=== PATIENT | male | born 1945 | race Caucasian/White ===

== ENCOUNTER 2021-06-21 12:03 | Emergency (ER) | payer MEDICARE ==
[~2021-06-21] VITALS: Ht 185.5 cm; Wt 79.4 kg
--- NOTE | 2021-06-21 12:25 | ED General ---
General Chief Complaint: Dizziness/Syncope Stated Complaint: SEIZURE-LIKE ACTIVITY Source of Information: Patient, Spouse History of Present Illness Date Seen by Provider: June 21, 2021 Time Seen by Provider: 12:05 Initial Comments 75-year-old male presenting by private vehicle as they were driving home from [facility]. Patient just had hip replacement surgery and was being discharged from the hospital this morning. He had slightly low blood pressure this morning and was given a tramadol pain pill prior to leaving the hospital. On the way home from the hospital he had 2 episodes where he felt like he was going to throw up and was pale and shaking. Patient states he felt like he had some motion sickness as well. According to patient and spouse he does not tolerate narcotic pain medicines very well. They still have [address] to get to their home so they stopped here at [place] to be evaluated. They were going to turn around and go back to [facility] but because he was feeling better they [place] [address]. Currently sitting in the bed now he states he just feels a little weak. Timing/Duration: 1/2 Hour Severity: Moderate Associated Systoms: No Chest Pain, No Cough; Diaphoresis; No Fever/Chills, No Headaches, No Loss of Appetite, No Malaise; Nausea/Vomiting (Had nausea but no vomiting); No Rash, No Seizure, No Shortness of Air, No Syncope, No Weakness Allergies and Home Medications Allergies Coded Allergies: No Known Drug Allergies (Unverified , 06/21/21) Patient Home Medication List Home Medication List Reviewed: Yes Review of Systems Review of Systems Constitutional: No chills, No fever EENTM: no symptoms reported Respiratory: no symptoms reported Cardiovascular: no symptoms reported Gastrointestinal: see HPI Genitourinary: no symptoms reported Musculoskeletal: joint pain (Some pain in his hip from recent replacement) Skin: see HPI Psychiatric/Neurological: See HPI Past Ctdrmca-Rkmjtg-Wfmgzb Hx Patient Social History Tobacco Use?: No Smoking Status: Never a Smoker Smokeless Tobacco Frequency: Never a User Use of E-Cig and/or Vaping dev: No Use of E-Cig and/or Vaping Randell: Never a User Substance use?: No Alcohol Use?: No Pt feels they are or have been: No Immunizations Up To Date COVID19 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 oz. kg; BMI Method: General Appearance: No Apparent Distress, WD/WN HEENT: PERRL/EOMI, Pharynx Normal Neck: Full Range of Motion, Normal Inspection, Non Tender, Supple Respiratory: Chest Non Tender, Lungs Clear, Normal Breath Sounds, No Accessory Muscle Use, No Respiratory Distress Cardiovascular: Regular Rate, Rhythm, Normal Peripheral Pulses Gastrointestinal: Normal Bowel Sounds, No Pulsatile Mass, Non Tender, Soft Rectal: Deferred Extremity: Normal Capillary Refill, Normal Inspection, No Pedal Edema Neurologic/Psychiatric: Alert, Oriented x3, No Motor/Sensory Deficits, survey field technician II- XII Norm as Tested Skin: Normal Color, Warm/Dry Progress/Results/Core Measures Suspected Sepsis SIRS Temperature: Pulse: Respiratory Rate: Laboratory Tests 06/21/21 12:21: White Blood Count 11.0 Blood Pressure / Mean: Laboratory Tests 06/21/21 12:21: Creatinine 0.86, INR Comment 1.4, Platelet Count 126L, Total Bilirubin 0.8 Results/Orders Lab Results Laboratory Tests Test 06/21/21 12:21 Range/Units White Blood Count 11.0 4.3-11.0 10^3/uL Red Blood Count 4.34 4.30-5.52 10^6/uL Hemoglobin 13.5 13.3-17.7 g/dL Hematocrit 40 40-54 % Mean Corpuscular Volume 92 80-99 fL Mean Corpuscular Hemoglobin 31 25-34 pg Mean Corpuscular Hemoglobin Concent 34 32-36 g/dL Red Cell Distribution Width 13.1 10.0-14.5 % Platelet Count 126 L 130-400 10^3/uL Mean Platelet Volume 11.7 9.0-12.2 fL Immature Granulocyte % (Auto) 1 % Neutrophils (%) (Auto) 75 42-75 % Lymphocytes (%) (Auto) 12 12-44 % Monocytes (%) (Auto) 11 0-12 % Eosinophils (%) (Auto) 2 0-10 % Basophils (%) (Auto) 0 0-10 % Neutrophils # (Auto) 8.2 H 1.8-7.8 10^3/uL Lymphocytes # (Auto) 1.3 1.0-4.0 10^3/uL Monocytes # (Auto) 1.3 H 0.0-1.0 10^3/uL Eosinophils # (Auto) 0.2 0.0-0.3 10^3/uL Basophils # (Auto) 0.0 0.0-0.1 10^3/uL Immature Granulocyte # (Auto) 0.1 0.0-0.1 10^3/uL Percent Immature Platelet Fraction 7.7 H 0.0-7.6 % Prothrombin Time 17.2 H 12.2-14.7 SEC INR Comment 1.4 0.8-1.4 Activated Partial Thromboplast Time 31 24-35 SEC Sodium Level 137 135-145 MMOL/L Potassium Level 4.3 3.6-5.0 MMOL/L Chloride Level 104 98-107 MMOL/L Carbon Dioxide Level 23 21-32 MMOL/L Anion Gap 10 5-14 MMOL/L Blood Urea Nitrogen 27 H 7-18 MG/DL Creatinine 0.86 0.60-1.30 MG/DL Estimat Glomerular Filtration Rate 90 BUN/Creatinine Ratio 31 Glucose Level 112 H 70-105 MG/DL Calcium Level 8.7 8.5-10.1 MG/DL Corrected Calcium 9.0 8.5-10.1 MG/DL Magnesium Level 1.9 1.6-2.4 MG/DL Total Bilirubin 0.8 0.1-1.0 MG/DL Aspartate Amino Transf (AST/SGOT) 22 5-34 U/L Alanine Aminotransferase (ALT/SGPT) 13 0-55 U/L Alkaline Phosphatase 69 40-136 U/L Troponin I < 0.30 <0.30 NG/ML Total Protein 5.7 L 6.4-8.2 GM/DL Albumin 3.6 3.2-4.5 GM/DL Lipase 12 8-78 U/L My Orders Orders - GARRISON GIRARD MD Cbc With Automated Diff (06/21/21 12:22) Magnesium (06/21/21 12:22) Ekg Tracing (06/21/21 12:22) Comprehensive Metabolic Panel (06/21/21 12:22) Protime With Inr (06/21/21 12:22) Partial Thromboplastin Time (06/21/21 12:22) O2 (06/21/21 12:22) Monitor-Rhythm Ecg Trace Only (06/21/21 12:22) Ed Iv/Invasive Line Start (06/21/21 12:22) Lipase (06/21/21 12:22) Troponin I Fs (06/21/21 12:22) Ct Angio Chest W (06/21/21 12:22) Ns Iv 1000 Ml (Sodium Chloride 0.9%) (06/21/21 12:58) Iohexol Injection (Omnipaque 350 Mg/Ml 1 (06/21/21 13:00) Received Contrast (Hold Metformin- Contr (06/21/21 13:00) Sodium Chloride Flush (Catheter Flush Sy (06/21/21 13:00) Ns (Ivpb) (Sodium Chloride 0.9% Ivpb Bag (06/21/21 13:00) Medications Given in ED Current Medications Medications Dose Ordered Sig/Shama Route Start Time Stop Time Status Last Admin Dose Admin Iohexol 100 ml ONCE ONCE IV 06/21/21 13:00 06/21/21 13:07 DC 06/21/21 13:20 100 ML Sodium Chloride 10 ml NEEDED PRN IV 06/21/21 13:00 06/21/21 14:27 DC 06/21/21 13:20 10 ML Sodium Chloride 100 ml ONCE ONCE IV 06/21/21 13:00 06/21/21 13:07 DC 06/21/21 13:20 100 ML Vital Signs/I&O 06/21/21 06/21/21 12:10 14:27 Temp 36.2 Pulse 61 68 Resp 16 15 B/P (MAP) 118/63 (81) 122/71 Pulse Ox 98 O2 Delivery Room Air Room Air Capillary Refill : Progress Note #1: Progress Note Ordered basic labs and electrocardiogram. Will check a CT scan of the chest to evaluate for possible pulmonary embolism. Progress Note #2: Progress Note CBC appears stable. His chemistry panel does show mild elevation of his BUN to 27. He might be a little dehydrated. His electrocardiogram does not show acute ST elevation. Awaiting CT scan of the chest to evaluate for PE. Will order 1 L of normal saline for hydration while waiting on scan. Progress Note #3: Progress Note CT angiogram of Chest is negative for PE. Pt feels better and bp improved after NS fluid bolus. Counseled on follow up and return precautions. Check with clinic for continued concerns ECG Initial ECG Impression Date: June 21, 2021 Initial ECG Impression Time: 12:27 Initial ECG Rate: 53 Initial ECG Rhythm: S.Todd Initial ECG Comparisson: No Previous ECG Available Comment Sinus bradycardia with a heart rate of 53 bpm. MA interval [address] elevation. QT interval 429 ms with a QTc interval 412 ms. There is no prior tracing available for comparison. Diagnostic Imaging Diagonstic Imaging: CT (Angiogram) Plain Films/CT/US/NM/MRI: chest Comments NAME: [facility] REC#: [id number] PT STATUS: REG ER : 1945 PHYSICIAN: GARRISON GIRARD MD ADMIT DATE: 06/21/21/ER FS Draft Date of Exam:06/21/21 CT ANGIO CHEST W EXAMINATION: CT angiography of the chest. TECHNIQUE: Contrast enhanced thin section helical images were obtained through the chest with intravenous contrast timed for the optimal opacification of the arterial structures per CTA protocol. Post-processing, reconstructions and interpretation of angiographic images of the vessels was performed. 3D MIP reconstructions were performed and reviewed. All CT scans use one or more of the following dose optimizing techniques: automated exposure control, MA and/or KvP adjustment based on a patient size and exam type, or iterative reconstruction. HISTORY: near syncope, recent hip surgery COMPARISON: None available. FINDINGS: There is no pulmonary embolism. There is no edema or pneumonia. No pleural effusion. No pneumothorax. No suspicious nodules. There is no axillary or supraclavicular lymphadenopathy. There is no mediastinal lymphadenopathy. Heart size is normal. There are mild coronary artery calcifications. No pericardial effusion. Aorta is normal in caliber. Limited views of the upper abdomen show simple cysts in the liver. There are other too small to characterize liver lesions that are likely cysts but are not well evaluated. There are no suspicious osseous lesions. IMPRESSION: 1. No pulmonary embolism, clear lungs. Dictated on workstation # [id number] Dict: 06/21/21 1343 Trans: 06/21/21 1350 [id number] Interpreted by: ALLI ACUNA MD Electronically signed by: Reviewed: Reviewed by Me Departure Impression Primary Impression: Vasovagal near syncope Additional Impression: Dehydration Disposition: 01 HOME, SELF-CARE Condition: Stable Departure-Patient Inst. Decision time for Depature: 13:56 Referrals: RONEL WANG MD (PCP) Primary Care Physician Patient Instructions: Dehydration, Adult ED, Near Fainting (DC) Add. Discharge Instructions: Blood work and CT scan had looked okay here other than showing some dehydration. The symptoms and issues that you experienced in the car ride could be partly caused by the medications he took just prior to leaving the hospital as well as some dehydration. Drink plenty of water and stay well-hydrated. Check back with your primary care provider for continued concerns All discharge instructions reviewed with patient and/or family. Voiced understanding. GARRISON GIRARD MD June 21, 2021 12:25
[2021-06-21 12:39] LABS: INR 1.4 (0.8-1.4); PROTHROMBIN TIME PATIENT 17.2 SEC (12.2-14.7)
[2021-06-21 12:45] LABS: BASOPHILS % (AUTO) 0 % (0-10); EOSINOPHILS # (AUTO) 0.2 10^3/uL (0.0-0.3); EOSINOPHILS % (AUTO) 2 % (0-10); HEMATOCRIT 40 % (40-54); HEMOGLOBIN 13.5 g/dL (13.3-17.7); LYMPHOCYTES # (AUTO) 1.3 10^3/uL (1.0-4.0); LYMPHOCYTES % (AUTO) 12 % (12-44); MEAN CORPUSCULAR HEMOGLOBIN 31 pg (25-34); MEAN CORPUSCULAR HGB CONC 34 g/dL (32-36); MEAN CORPUSCULAR VOLUME 92 fL (80-99); MEAN PLATELET VOLUME 11.7 fL (9.0-12.2); MONOCYTES # (AUTO) 1.3 10^3/uL (0.0-1.0); MONOCYTES % (AUTO) 11 % (0-12); NEUTROPHILS # (AUTO) 8.2 10^3/uL (1.8-7.8); NEUTROPHILS % (AUTO) 75 % (42-75); PLATELET COUNT 126 10^3/uL (130-400)
[2021-06-21 12:49] LABS: POTASSIUM 4.3 MMOL/L (3.6-5.0)
[2021-06-21 12:50] LABS: ALBUMIN 3.6 GM/DL (3.2-4.5); BILIRUBIN,TOTAL 0.8 MG/DL (0.1-1.0); CALCIUM 8.7 MG/DL (8.5-10.1); CREATININE SERUM 0.86 MG/DL (0.60-1.30); MAGNESIUM 1.9 MG/DL (1.6-2.4); TOTAL PROTEIN 5.7 GM/DL (6.4-8.2)
[2021-06-21] MEDS ORDERED: NS IV 1000 ML 1,000 ML IV STA (12:58)
[2021-06-21] MEDS ORDERED: CATHETER FLUSH 10 ML SYR IV PRN (13:00)
[2021-06-21] MEDS ORDERED: HOLD METFORMIN - RECEIVED CONTRAST 20 ML VIAL IV SCH (13:00)
[2021-06-21] MEDS ORDERED: NS 100 ML (IVPB) BAG IV ONE (13:00)
[2021-06-21] MEDS ORDERED: IOHEXOL 350 MG/ML 100 ML (OMNIPAQUE 350) VIAL IV ONE (13:00)
--- NOTE | 2021-06-21 13:51 | Diagnostic Imaging Report ---
EXAMINATION: CT angiography of the chest. TECHNIQUE: Contrast enhanced thin section helical images were obtained through the chest with intravenous contrast timed for the optimal opacification of the arterial structures per CTA protocol. Post-processing, reconstructions and interpretation of angiographic images of the vessels was performed. 3D MIP reconstructions were performed and reviewed. All CT scans use one or more of the following dose optimizing techniques: automated exposure control, MA and/or KvP adjustment based on a patient size and exam type, or iterative reconstruction. HISTORY: near syncope, recent hip surgery COMPARISON: None available. FINDINGS: There is no pulmonary embolism. There is no edema or pneumonia. No pleural effusion. No pneumothorax. No suspicious nodules. There is no axillary or supraclavicular lymphadenopathy. There is no mediastinal lymphadenopathy. Heart size is normal. There are mild coronary artery calcifications. No pericardial effusion. Aorta is normal in caliber. Limited views of the upper abdomen show simple cysts in the liver. There are other too small to characterize liver lesions that are likely cysts but are not well evaluated. There are no suspicious osseous lesions. IMPRESSION: 1. No pulmonary embolism, clear lungs. Dictated by: Dictated on workstation # [id number]
[2021-06-21 14:27] VITALS: BP 122/71
== END 2021-06-21 14:27 | disposition home or self-care (01) ==
LOC: ER FS 12:05
DX: R55 Syncope and collapse (principal); E86.0 Dehydration; R79.89 Other specified abnormal findings of blood chemistry; R00.1 Bradycardia, unspecified
CPT/HCPCS: 36415; 71275; 80053; 83690; 83735; 84484; 85025; 85610; 85730; 93005; 93041; 96360; Q9967

== ENCOUNTER 2022-06-23 20:27 | Emergency (ER) | payer MEDICARE ==
[~2022-06-23] VITALS: Ht 185.4 cm; Wt 90.7 kg
[2022-06-23 20:32] VITALS: BP 136/72
--- NOTE | 2022-06-23 21:03 | ED Cough/URI ---
General Chief Complaint: COVID19 Suspect/Confirmed Stated Complaint: RUNNY NOSE| SBEEZING|ITCHY THROAT Nursing Triage Note: Patient states that he has been having runny nose, fever and congestion for the last few days. Patient was out of states visiting family. Patient took a home covid test and it was positive. Patient wants to get checked. Source: patient, family () Exam Limitations: no limitations History of Present Illness Date Seen by Provider: June 23, 2022 Time Seen by Provider: 20:40 Initial Comments 76-year-old male patient without history of medical complaining of nasal congestion, fever up to 102, sore throat for the last 3 days without cough, shortness of breath, headache, nausea and vomiting, diarrhea and constipation, myalgia. Patient had positive COVID test at home but wanted to repeat the test to confirm the diagnosis. Patient states he flew to 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 Patient had sick contact with his and grandchildren for the last 3 days and his had positive COVID test today also. Patient has COVID vaccination and several booster shot. Allergies and Home Medications Allergies Coded Allergies: No Known Drug Allergies (Unverified , 06/21/21) Patient Home Medication List Home Medication List Reviewed: Yes Review of Systems Review of Systems Constitutional: see HPI EENTM: see HPI Respiratory: see HPI Cardiovascular: no symptoms reported Gastrointestinal: no symptoms reported Genitourinary: no symptoms reported Musculoskeletal: no symptoms reported Skin: no symptoms reported Psychiatric/Neurological: No Symptoms Reported Hematologic/Lymphatic: No Symptoms Reported Immunological/Allergic: no symptoms reported All Other Systems Reviewed Negative Unless Noted: Yes Past Llsphvc-Dkmwfm-Nlosdj Hx Patient Social History Tobacco Use?: No Substance use?: No Alcohol Use?: No Pt feels they are or have been: No Past Medical History Surgery/Hospitalization HX: Hip replacement Surgeries: Yes Orthopedic Physical Exam Vital Signs - First Documented 06/23/22 20:32 Temp 36.9 Pulse 67 Resp 18 B/P (MAP) 136/72 (93) Pulse Ox 97 O2 Delivery Room Air Capillary Refill : Less Than 3 Seconds Height: '" Weight: lbs. oz. kg; 26.00 BMI Method: General Appearance: WD/WN, no apparent distress Eyes: Right Eye Normal Inspection, Right Eye PERRL, Right Eye EOMI; Bilateral Eye Normal Inspection, Bilateral Eye PERRL, Bilateral Eye EOMI, Bilateral Eye Abnormal EOM HEENT: PERRL/EOMI, normal ENT inspection, TMs normal, pharyngeal erythema (Without extra), other (Nasal mucosa congestion) Neck: non-tender, full range of motion, supple, normal inspection, carotid bruit Respiratory: chest non-tender, lungs clear, normal breath sounds, no respiratory distress, no accessory muscle use, respiratory distress Cardiovascular: normal peripheral pulses, regular rate, rhythm, no edema, no gallop, no JVD, no murmur Gastrointestinal: normal bowel sounds, non tender, soft, no organomegaly, no pulsatile mass Genital/Rectal: normal genital exam; No normal genital exam Extremities: normal range of motion, non-tender, normal inspection, no pedal edema, no calf tenderness, normal capillary refill, pelvis stable 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, no motor/sensory deficits, alert, normal mood/affect, oriented x 3 Skin: normal color, warm/dry, cyanosis, cool, diaphoresis, damp Lymphatic: no adenopathy, axilla node tender (R), axilla node tender (L), inguinal node tender (R), inguinal node tender (L) Progress/Results/Core Measures Suspected Sepsis SIRS Temperature: Pulse: 67 Respiratory Rate: 18 Blood Pressure 136 /72 Mean: 93 Results/Orders Lab Results Laboratory Tests Test 06/23/22 20:43 Range/Units SARS-CoV-2 RNA (RT-PCR) Detected H Not Detecte My Orders Orders - VANESA DAVIS MD Covid 19 Inhouse Test (06/23/22 20:50) Vital Signs/I&O 06/23/22 20:32 Temp 36.9 Pulse 67 Resp 18 B/P (MAP) 136/72 (93) Pulse Ox 97 O2 Delivery Room Air Capillary Refill : Less Than 3 Seconds Blood Pressure Mean: 93 Progress Note : Progress Note Patient with nasal congestion and sore throat and fever for 3 days with sick co ntact at and positive home COVID test who wanted to have confirmation of COVID infection and had positive COVID test in ER. Patient had unremarkable physical exam except for mild nasal congestion and pharyngeal erythema. Patient was afebrile and had stable vital sign. Patient was consented for treatment for COVID and advised that he does not have high risk condition for getting COVID treatment and his symptom is very mild and just needs supportive treatment with Tylenol and ibuprofen for fever and pain. Patient advised for quarantine for 5 days and follow-up with primary care physician or return to ER as needed. Departure Impression Primary Impression: COVID-19 virus infection Disposition: HOME, SELF-CARE Condition: Stable Departure-Patient Inst. Decision time for Depature: 21:24 Referrals: RONEL WANG MD (PCP) Primary Care Physician Patient Instructions: COVID-19 ED Add. Discharge Instructions: Drink more liquid May take [id number] Tylenol and ibuprofen alternate as needed for fever and pain Follow-up with your primary care physician or return to ER as needed All discharge instructions reviewed with patient and/or family. Voiced understanding. VANESA DAVIS MD June 23, 2022 21:03
== END 2022-06-23 21:30 | disposition home or self-care (01) ==
LOC: EDUNIT# 20:27 → ER FS 20:29
DX: U07.1 COVID-19 (principal); R09.81 Nasal congestion; R50.9 Fever, unspecified; R09.89 Other specified symptoms and signs involving the circulatory and respiratory systems
CPT/HCPCS: 87636; 99283